=== PATIENT | female | born 1990 | race Caucasian/White ===

== ENCOUNTER 2016-10-28 10:23 | Outpatient (CLI) | payer MEDICAID | END 2016-10-28 10:24 | disposition home or self-care (01) | DX: Z36 Encounter for antenatal screening of mother (principal) ==

== ENCOUNTER 2016-11-15 11:57 | Outpatient (CLI) | payer MEDICAID | END 2016-11-15 11:58 | disposition home or self-care (01) | DX: Z36 Encounter for antenatal screening of mother (principal) ==

== ENCOUNTER 2016-12-07 09:56 | Outpatient (CLI) | payer MEDICAID | END 2016-12-07 09:57 | disposition home or self-care (01) | DX: Z36 Encounter for antenatal screening of mother (principal) ==

== ENCOUNTER 2016-12-07 11:12 | Outpatient (CLI) | payer MEDICAID | END 2016-12-07 11:13 | disposition home or self-care (01) | DX: Z34.02 Encounter for supervision of normal first pregnancy, second trimester (principal) ==

== ENCOUNTER 2017-02-06 08:00 | Outpatient (CLI) | payer MEDICAID | END 2017-02-06 08:01 | disposition home or self-care (01) | DX: Z03.75 Encounter for suspected cervical shortening ruled out (principal) ==

== ENCOUNTER 2017-02-20 11:17 | Outpatient (CLI) | payer MEDICAID | END 2017-02-20 11:18 | DX: O60.03 Preterm labor without delivery, third trimester (principal) ==

== ENCOUNTER 2017-02-25 08:54 | Outpatient (CLI) | payer MEDICAID ==
[2017-02-25] MEDS ORDERED: ACETAMINOPHEN 325 MG TABLET PO SCH (09:20)
[2017-02-25 09:27] LABS: BASOPHILS % (AUTO) 0.4 %; EOSINOPHILS # (AUTO) 0.1 10^3/uL (0.0-0.7); EOSINOPHILS % (AUTO) 0.7 %; HCT - HEMATOCRIT 36.7 % (37.0-47.0); HGB - HEMOGLOBIN 12.6 g/dL (12.0-16.0); LYMPHOCYTES # (AUTO) 2.2 10^3/uL (1.5-3.5); LYMPHOCYTES % (AUTO) 19.5 %; MEAN CORPUSCULAR HEMOGLOBIN 29.1 pg (27.0-31.0); MEAN CORPUSCULAR HGB CONC 34.4 g/dL (32.0-36.0); MEAN CORPUSCULAR VOLUME 84.7 fL (81.0-99.0); MEAN PLATELET VOLUME 7.6 fL (7.9-10.8); MONOCYTES # (AUTO) 0.7 10^3/uL (0.0-1.0); NEUTROPHILS # (AUTO) 8.2 10^3/uL (1.5-6.6); NEUTROPHILS % (AUTO) 73.4 %; RED BLOOD COUNT 4.33 10^6/uL (4.20-5.40); RED CELL DISTRIBUTION WIDTH 13.7 % (12.0-15.0); UNCORRECTED WHITE BLOOD COUNT 11.2 x10^3/uL; WHITE BLOOD COUNT 11.2 x10^3/uL (4.8-10.8)
[2017-02-25 09:40] LABS: CREATININE 0.7 mg/dL (0.4-1.0); URIC ACID 4.1 mg/dL (2.6-7.2)
[2017-02-25 10:06] VITALS: BP 122/85
[2017-02-25 11:04] LABS: BILIRUBIN,URINE NEGATIVE (NEGATIVE); PH,URINE 6.5 PH (5.0-7.5)
[2017-02-25 11:14] LABS: UA w/ MICROSCOPIC CHARGE YES
[2017-02-25 11:20] LABS: UR CULTURE IF IND NOT INDICATED
== END 2017-02-25 11:05 | disposition home or self-care (01) ==
LOC: WFO 08:54 → OB 08:56 → WFO 11:05
PROVIDERS: ATTEND Obstetrics & Gynecology
DX: O99.283 Endocrine, nutritional and metabolic diseases complicating pregnancy, third trimester (principal); Z3A.35 35 weeks gestation of pregnancy; E86.0 Dehydration
CPT/HCPCS: 36415; 81001; 82565; 82570; 83615; 84156; 84450; 84460; 84550; 85025; 87081; 99213; A9270; 81003; 87086

== ENCOUNTER 2017-03-12 10:26 | Outpatient (CLI) | payer MEDICAID ==
[2017-03-12 10:46] VITALS: BP 125/81
[2017-03-12 11:26] LABS: BILIRUBIN,URINE NEGATIVE (NEGATIVE); PH,URINE 7.5 PH (5.0-7.5)
[2017-03-12 11:28] LABS: UA w/ MICROSCOPIC CHARGE YES
[2017-03-12 11:34] LABS: UR CULTURE IF IND NOT INDICATED
== END 2017-03-12 12:40 | disposition home or self-care (01) ==
LOC: WFO 10:26 → OB 10:28 → WFO 12:40
PROVIDERS: ATTEND Obstetrics & Gynecology
DX: Z34.83 Encounter for supervision of other normal pregnancy, third trimester (principal)
CPT/HCPCS: 81001; 81003; 87086; 99214

== ENCOUNTER 2017-04-02 15:33 | Outpatient (CLI) | payer MEDICAID ==
[2017-04-02 15:46] VITALS: BP 109/80
== END 2017-04-02 18:13 | disposition home or self-care (01) ==
LOC: WFO 15:33 → OB 15:36 → WFO 18:13
PROVIDERS: ATTEND Obstetrics & Gynecology
DX: Z34.83 Encounter for supervision of other normal pregnancy, third trimester (principal)
CPT/HCPCS: 99214

== ENCOUNTER 2017-04-04 09:14 | Observation (INO) | payer MEDICAID ==
[2017-04-04] MEDS ORDERED: MORPHINE 10 MG/ML VIAL IVP SCH (13:00)
[2017-04-04] MEDS ORDERED: PROMETHAZINE 25 MG/1 ML VIAL IM SCH (13:00)
[2017-04-04 19:05] VITALS: BP 129/86
== END 2017-04-04 18:50 | disposition home or self-care (01) ==
LOC: WFO 09:14 → OB 09:15 → WFO 11:39 → OB 11:40
PROVIDERS: ADMIT Obstetrics & Gynecology; ATTEND Obstetrics & Gynecology
DX: O75.89 Other specified complications of labor and delivery (principal); Z3A.40 40 weeks gestation of pregnancy; O48.0 Post-term pregnancy
CPT/HCPCS: 96372; 96374; 99212

== ENCOUNTER 2017-04-05 20:36 | Inpatient (IN) | payer MEDICAID ==
--- NOTE | 2017-04-05 08:26 | PREOP HISTORY & PHYSICAL ---
DATE OF ADMISSION/SURGERY: 04/06/2017 DIAGNOSES 1. A 39-weeks 6-day gestation. 2. Plan postdates induction. 3. Maternal anxiety. HISTORY OF PRESENT ILLNESS: The patient is a 26-year-old , 2, para 0-0-1-0 woman, who was seen on Monday for prodrome of labor. She was quite uncomfortable and submitted to therapeutic rest with morphine, which knocked out the contractions and helped her rest. Her cervix was 2 cm, 50% effaced, -1 to -2 station. Despite over 8 hours of observation, it did not change. There is no suspected leaking membranes. After discussion, we made plans for postdates induction this week. The patient is very anxious and concerned about potential transportation problems getting to Labor and Delivery. The patient's EDC is 03/31/2017. [facility] Currently patient reports no signs or symptoms of preeclampsia. Reference typewritten H and P. BASIC LABS: Blood type O positive, antibody screen negative, RPR negative, hepatitis B surface antigen negative, rubella immune. Glucose challenge test normal 114. GBS status positive. ADDENDUM; patient presented in labor, eference Dr. Camarena's notes PAST MEDICAL HISTORY 1. Recurrent bladder infections. 2. High anxiety and depression. 3. No chronic disease history. PAST SURGICAL HISTORY: None. ALLERGIES: vitamins with iron. SOCIAL HISTORY: , high school graduate. No drug, tobacco, or alcohol use. FAMILY HISTORY: No known congenital anomalies or chromosomal defects; depression ; hypertension, and DVT. REVIEW OF SYSTEMS CONSTITUTIONAL: NEG. HEENT: NEG. CARDIAC: NEG. PULMONARY: NEG. GASTROINTESTINAL: NEG. GENITOURINARY: NEG. SKIN: NEG. NEUROLOGIC: NEG. MUSCULOSKELETAL: NEG. PHYSICAL EXAMINATION GENERAL: Anxious demeanor, often needs facts repeated multiple times to understand. VITAL SIGNS: Blood pressure , temperature . HEENT: Supple neck. No thyromegaly. EOMI, nonicteric sclera. LUNGS: Clear. CARDIAC: Regular. No murmur, no gallop. ABDOMEN: No hepatosplenomegaly. UTERUS: Normal resting tone, appropriate size, vertex presentation. EXTERNAL GENITALIA: No lesions. CERVIX: Baseline exam 2 cm, 50% effacement, -1 station. EXTERNAL HEART MONITOR: See current physician and nursing notes. EXTREMITIES: Nonedematous. NEUROLOGIC: Grossly intact. Patellar reflexes 2+ and equal. LABORATORY: Admission CBC pending. ASSESSMENT: The patient is a 26-year-old essential primigravida, who is currently approaching 41 weeks' gestation. She struggles with anxiety and current logistical situation, and the emotional demands of are difficult for her. She is a candidate for induction at 41 weeks and will benefit with cervical ripening. Cervical ripening was explained to her in detail. PT PRESENTED IN LABOR PLAN 1. Admit night for cervical ripening. 2. Pitocin induction Monday. 3. Begin penicillin GBS prophylaxis evening. ADMITTED JOB #: [id number] EXT JOB #:[id number] [email or web address]
[2017-04-05] MEDS ORDERED: fentaNYL 100 MCG/2 ML VIAL IVP PRN (20:40)
[2017-04-05] MEDS ORDERED: ONDANSETRON 4 MG/2 ML VIAL IVP PRN ×2 (20:40→22:22)
[2017-04-05] MEDS ORDERED: LACTATED RINGERS 1,000 ML IV SCH (20:40)
[2017-04-05] MEDS ORDERED: SODIUM CHLORIDE FLUSH 0.9% 10 ML SYRINGE IVP PRN (20:40)
[2017-04-05] MEDS ORDERED: PENICILLIN G POTASSIUM 5,000,000 UNIT in SODIUM CHLORIDE 0.9% MINIBAG 100 ML IV SCH (21:00)
[2017-04-05] MEDS ORDERED: OXYTOCIN/LACTATED RINGERS 250 ML IV SCH (21:00)
[2017-04-05] MEDS ORDERED: fent/BUPIV 2 MCG/0.125% 250 ML EP ONE (21:44)
[2017-04-05 21:46] LABS: BASOPHILS # (AUTO) 0.1 10^3/uL (0.0-0.1); BASOPHILS % (AUTO) 0.6 %; EOSINOPHILS # (AUTO) 0.1 10^3/uL (0.0-0.7); EOSINOPHILS % (AUTO) 0.6 %; HCT - HEMATOCRIT 37.2 % (37.0-47.0); HGB - HEMOGLOBIN 12.8 g/dL (12.0-16.0); LYMPHOCYTES # (AUTO) 2.8 10^3/uL (1.5-3.5); MEAN CORPUSCULAR HEMOGLOBIN 29.2 pg (27.0-31.0); MEAN CORPUSCULAR HGB CONC 34.5 g/dL (32.0-36.0); MEAN CORPUSCULAR VOLUME 84.6 fL (81.0-99.0); MEAN PLATELET VOLUME 7.7 fL (7.9-10.8); MONOCYTES # (AUTO) 1.2 10^3/uL (0.0-1.0); MONOCYTES % (AUTO) 8.2 %; NEUTROPHILS % (AUTO) 70.6 %; NUCLEATED RED BLOOD CELLS AUTO 0.1 /100WBC; RED CELL DISTRIBUTION WIDTH 14.1 % (12.0-15.0); UNCORRECTED WHITE BLOOD COUNT 14.2 x10^3/uL; WHITE BLOOD COUNT 14.2 x10^3/uL (4.8-10.8)
[2017-04-05] MEDS ORDERED: ROPIVACAINE 0.2% PF 10 ML VIAL EPI ONE (22:00)
[2017-04-05] MEDS ORDERED: NALOXONE 0.4 MG/ML VIAL IVP PRN (22:22)
[2017-04-05] MEDS ORDERED: METOCLOPRAMIDE 10 MG/2 ML VIAL IVP PRN (22:22)
[2017-04-05] MEDS ORDERED: diphenhydrAMINE INJ 50 MG/ML VIAL IVP PRN (22:22)
[2017-04-05] MEDS ORDERED: fent/BUPIV 2 MCG/0.125% 250 ML EP PRN (22:22)
[2017-04-05] MEDS ORDERED: NALBUPHINE 20 MG/ML AMP IVP PRN (22:22)
[2017-04-05] MEDS ORDERED: ePHEDrine 50 MG/ML AMP IVP PRN (22:22)
[2017-04-05] MEDS ORDERED: LACTATED RINGERS 500 ML IV ONE (22:22)
--- NOTE | 2017-04-05 23:34 | HISTORY & PHYSICAL EXAMINATION ---
Admit History - Instructions [place]: -Left hand click circles element as positive or present. -Right hand click slashes element as negative or not present. - Visit Reason Visit Reason: Contractions (Pt was seen last PM and was given Morphiene for sleep. Sent home adn returned this PM at about 2230 with return of contractions. She SROM at 1999.), Membranes rupture (2200), Bloody show (this afternoon.) - : 2 Parity: 0 Premature: 0 : 1 Care: positive: [facility] Complications This : positive: None ( care starting at 10 weeks. 15 visits. GBS positive) Smoking Status: Never smoker - Mother's Labs Mother's Blood Type: positive: O Mother's RH: positive: Positive GBS: positive: Group B Strep Positive Rubella Status: positive: Non-immune Meds/Allgy - Home Medications Home Medications: Ambulatory Orders Medication Instructions Recorded Confirmed Pnv95/Iron Fum/Folic Acid 1 each PO DAILY 04/07/16 04/07/16 [ [place]] - Allergies Allergies/Adverse Reactions: Allergies Allergy/AdvReac Type Severity Reaction Status Date / Time No Known Drug Allergies Allergy Verified 04/07/16 10:31 Physical - Abdominal Exam Contraction Frequency (min/apart): 2 Contraction Intensity: positive: Moderate to strong Uterine Resting Tone: positive: Soft - Monitoring Heart Rate Baseline: 145 Strip Review: positive: Category I - Presentation Presentation: positive: Vertex - Vaginal Exam Membranes: positive: Membranes ruptured Dilation (in cm): 5 Effacement (%): 90% Station: positive: -1 Cervical Position: positive: Midposition - Speculum Exam Findings: positive: Gross leak Plan for Labor - Plan For Labor Plan for Labor: Admit Epidural PCN 5 million with 2.5
[2017-04-06] MEDS: PENICILLIN G POTASSIUM 2,500,000 UNIT in SODIUM CHLORIDE 0.9% 100ML 100 ML IV SCH ×3 (01:42→09:32)
--- NOTE | 2017-04-06 07:03 | PROVIDER PROGRESS NOTE ---
Labor Progress Note - Instructions [place]ash: -Left hand click circles element as positive or present. -Right hand click slashes element as negative or not present. - Uterine Monitoring Uterine Monitoring Mode: positive: External toco Contraction Frequency (min/apart): 3-4 Contraction Intensity: positive: Strong Uterine Resting Tone: positive: Soft - Monitoring Monitor Mode: positive: External ultrasound Heart Rate Baseline: 160 Heart Rate Variability: positive: Moderate (6-25 bmp) Accelerations: positive: Present, 15x15 Strip Review: positive: Category I - Vaginal Exam Dilation (in cm): 9 Effacement (%): 100 Station: positive: 1 Cervical Position: positive: Anterior - Labor Progress Note Labor Progress Note/Additional Text: LOP Roll to the left
[2017-04-06] MEDS ORDERED: OXYTOCIN/LACTATED RINGERS 250 ML IV SCH (08:11)
--- NOTE | 2017-04-06 08:15 | PROVIDER PROGRESS NOTE ---
Labor Progress Note - Instructions [place]/Slash: -Left hand click circles element as positive or present. -Right hand click slashes element as negative or not present. - Uterine Monitoring Uterine Monitoring Mode: positive: External toco Contraction Frequency (min/apart): 7 Contraction Intensity: positive: Moderate to strong Uterine Resting Tone: positive: Soft - Monitoring Monitor Mode: positive: External ultrasound Heart Rate Baseline: 150 Heart Rate Variability: positive: Moderate (6-25 bmp) Accelerations: positive: Present, 15x15 Decelerations: positive: Variable Strip Review: positive: Category I - Labor Progress Note Labor Progress Note/Additional Text: contractions spacing will start pitocin
[2017-04-06] MEDS ORDERED: MINERAL OIL LIGHT 10 ML MC ONE (10:22)
[2017-04-06] MEDS ORDERED: LIDOCAINE 1% 50 ML MDV SUBQ ONE (10:22)
--- NOTE | 2017-04-06 11:31 | PROVIDER PROGRESS NOTE ---
Labor Progress Note - Instructions [place]ash: -Left hand click circles element as positive or present. -Right hand click slashes element as negative or not present. - Uterine Monitoring Contraction Frequency (min/apart): 3-4 Contraction Intensity: positive: Strong Uterine Resting Tone: positive: Soft - Monitoring Monitor Mode: positive: External ultrasound Heart Rate Baseline: 170 Heart Rate Variability: positive: Moderate (6-25 bmp) Accelerations: positive: Absent Decelerations: positive: Early, Recurrent (>50% x20 min) Strip Review: positive: Category II - Vaginal Exam Dilation (in cm): c Effacement (%): 100 Station: positive: 3 Cervical Position: positive: Anterior - Labor Progress Note Labor Progress Note/Additional Text: Pt is pushing well. head is within vacuum range if necessary.
[2017-04-06] MEDS ORDERED: OXYTOCIN/LACTATED RINGERS 250 ML IV ONE (13:01)
[2017-04-06] MEDS ORDERED: HYDROCORTISONE/PRAMOXINE 10 GM PR PRN (13:01)
[2017-04-06] MEDS ORDERED: diphenhydrAMINE 25 MG CAPSULE PO PRN (13:01)
[2017-04-06] MEDS ORDERED: ONDANSETRON ODT 4 MG TABLET TL PRN (13:01)
[2017-04-06] MEDS ORDERED: ACETAMINOPHEN 325 MG TABLET PO PRN (13:01)
[2017-04-06] MEDS ORDERED: oxyCODONE 5 MG TABLET PO PRN (13:01)
--- NOTE | 2017-04-06 13:11 | DELIVERY NOTE ---
Delivery Note - Instructions [place]ash: -Left hand click circles element as positive or present. -Right hand click slashes element as negative or not present. - Labor Labor: positive: Spontaneous - Delivery Method Infant Delivery Method: positive: Vacuum assist - Presentation Presentation: positive: Vertex, JACLYN - left occiput anterior - Nuchal Cord Nuchal Cord: positive: None - Anesthetic Anesthetic Type: Anesthetic: positive: Lidocaine - 0.5% plain Volume: positive: 1cc, Other (10 ml) - Amniotic Fluid Description Amniotic Fluid Description: positive: Clear - Vacuum Use Indication for Vacuum Use: positive: Shortening of 2nd stage for maternal benefit Type of Vacuum Cup: positive: Cup: Mushroom Type Vacuum Extraction: positive: Successful (Pulled wit 2 contractions. no popoffs. pulled with 500 mm Hg.) - Episiotomy Type Episiotomy Type: positive: Midline - Laceration Laceration: positive: 3rd degree (Partial third degree laturation. transected 1/ 4 of the spinctor fibers.) - Suture Suture Type: positive: Vicryl Suture Size: positive: 3-0 (2 figure of 8 in the spinctor capsul.) - Delivery Outcome Delivery Outcome: positive: Livebirth - : positive: Placed in direct skin contact with mother, Bulb syringe, Stimulated [place] sex: positive: Male (Apgars 9/9. weight 8lb 4oz) - Cord Cord: positive: 3 vessels - Placenta Placenta: positive: Intact, Spontaneous - Estimated Blood Loss Estimated Blood Loss (in cc): 250 - Delivery Comments (Free Text/Narrative) Delivery Comments (Free Text/Narrative): there was a 30 second shoulder dystocia with the left arm anterior. responded to [place] perry.
[2017-04-06] MEDS: IBUPROFEN 600 MG TABLET PO SCH ×2 (13:38→20:13)
[2017-04-06] MEDS: HYDROCORTISONE 1% CREAM 28 GM TUBE PR PRN (13:39)
[2017-04-06] MEDS ORDERED: SIMETHICONE CHEW 80 MG TABLET PO SCH (14:00)
[2017-04-06] MEDS ORDERED: LACTATED RINGERS 1,000 ML IV SCH (14:00)
[2017-04-06] MEDS: oxyCOD/ACETAMIN 5 MG/325 MG TABLET PO PRN ×2 (18:19→22:36)
[2017-04-06] MEDS: DOCUSATE SODIUM 100 MG CAPSULE PO SCH (22:36)
[2017-04-06] MEDS: WITCH HAZEL/GLYCERIN 1 EACH MED..PAD TOP PRN (23:30)
[2017-04-07] MEDS: IBUPROFEN 600 MG TABLET PO SCH ×4 (03:44→23:44)
[2017-04-07 05:09] LABS: BASOPHILS % (AUTO) 0.2 %; EOSINOPHILS # (AUTO) 0.3 10^3/uL (0.0-0.7); EOSINOPHILS % (AUTO) 1.5 %; HCT - HEMATOCRIT 29.1 % (37.0-47.0); HGB - HEMOGLOBIN 9.7 g/dL (12.0-16.0); LYMPHOCYTES # (AUTO) 3.4 10^3/uL (1.5-3.5); LYMPHOCYTES % (AUTO) 19.1 %; MEAN CORPUSCULAR HEMOGLOBIN 28.7 pg (27.0-31.0); MEAN CORPUSCULAR HGB CONC 33.4 g/dL (32.0-36.0); MEAN CORPUSCULAR VOLUME 86.2 fL (81.0-99.0); MEAN PLATELET VOLUME 7.2 fL (7.9-10.8); MONOCYTES # (AUTO) 1.2 10^3/uL (0.0-1.0); MONOCYTES % (AUTO) 6.4 %; NEUTROPHILS % (AUTO) 72.8 %; RED BLOOD COUNT 3.38 10^6/uL (4.20-5.40); UNCORRECTED WHITE BLOOD COUNT 17.9 x10^3/uL; WHITE BLOOD COUNT 17.9 x10^3/uL (4.8-10.8)
--- NOTE | 2017-04-07 07:46 | PROVIDER PROGRESS NOTE ---
Subjective - Prog Note Date Prog Note Date: 04/07/17 Prog Note Time: 07:44 - Subjective Pt reports feeling: Improved (Pt notes episiotomy pain. 12/23. breast feeding milk not in) Objective - Vital Signs/Intake & Output Reviewed Vital Signs: Yes Vital Signs: Vital Signs x48h Temp Pulse Resp BP 04/07/17 03:48 36.8 C 87 16 110/78 Intake & Output: Intake & Output 04/04/17 04/05/17 04/06/17 04/07/17 23:59 23:59 23:59 23:59 Intake Total 535 500 Output Total 2800 Balance -2265 500 - Objective General Appearance: positive: No acute distress, Alert Respiratory: positive: Chest non-tender, No respiratory distress, Breath sounds nml Cardiovascular: positive: Regular rate & rhythm, No murmur Abdomen: positive: Non-tender, Mass (U-1 mild tenderness as expected) Extremities: negative: Calf tenderness, Magda's sign/cords - Lab Results Fish Bones: 04/07/17 04:50 Other Labs: Lab Results x24hrs 04/07/17 Range/Units 04:50 WBC 17.9 H (4.8-10.8) x10^3/uL RBC 3.38 L (4.20-5.40) 10^6/uL Hgb 9.7 L (12.0-16.0) g/dL Hct 29.1 L (37.0-47.0) % MCV 86.2 (81.0-99.0) fL MCH 28.7 (27.0-31.0) pg MCHC 33.4 (32.0-36.0) g/dL RDW 14.0 (12.0-15.0) % Plt Count 157 (130-450) 10^3/uL MPV 7.2 L (7.9-10.8) fL Neut # 13.0 H (1.5-6.6) 10^3/uL Lymph # 3.4 (1.5-3.5) 10^3/uL Snyder # 1.2 H (0.0-1.0) 10^3/uL Eos # 0.3 (0.0-0.7) 10^3/uL Baso # 0.0 (0.0-0.1) 10^3/uL Absolute Nucleated RBC 0.01 x10^3/uL Nucleated RBCs 0.0 /100WBC Assessment/Plan - Problem List (1) Status post vacuum-assisted vaginal delivery Impression: S/P vacuum assisted delivery with partial third degree laceration doing well. Discussed breast feeding, contraception, bleeding, . Pt would like Mirena at 6 week PP check Discharge meds: Motrin 800 Percocet 5/325 Colace 100 Iron
[2017-04-07] MEDS: oxyCOD/ACETAMIN 5 MG/325 MG TABLET PO PRN ×2 (08:18→17:29)
[2017-04-07] MEDS: DOCUSATE SODIUM 100 MG CAPSULE PO SCH ×2 (09:29→23:45)
[2017-04-07] MEDS: HYDROCORTISONE 1% CREAM 28 GM TUBE PR PRN (16:45)
[2017-04-07] MEDS: WITCH HAZEL/GLYCERIN 1 EACH MED..PAD TOP PRN (16:48)
[2017-04-07] MEDS: ACETAMINOPHEN 500 MG TABLET PO PRN (23:44)
[2017-04-08] MEDS: oxyCOD/ACETAMIN 5 MG/325 MG TABLET PO PRN (04:52)
[2017-04-08] MEDS: IBUPROFEN 600 MG TABLET PO SCH ×2 (06:48→13:27)
[2017-04-08] MEDS: ACETAMINOPHEN 500 MG TABLET PO PRN (08:54)
[2017-04-08] MEDS: DOCUSATE SODIUM 100 MG CAPSULE PO SCH (08:55)
[2017-04-08] MEDS ORDERED: MEASLES,MUMPS & RUBELLA VACC 0.5 ML VIAL SUBQ ONE (09:43)
--- NOTE | 2017-04-08 09:45 | Discharge Plan ---
Discharge Plan Disposition: 01 Home, Self Care Condition: Good Diet: Regular Activity Restrictions: Activity as Tolerated Shower Restrictions: No Driving Restrictions: No No Smoking: If you smoke, Please STOP! Call for help. Follow-up with: Ozzy Camarena MD [Provider Admit Priv/Credential] -
[2017-04-08 13:26] VITALS: BP 116/72
--- NOTE | 2017-04-10 08:11 | DISCHARGE SUMMARY ---
DATE OF ADMISSION: 04/05/2017 DATE OF DISCHARGE: 04/08/2017 DIAGNOSES 1. Term labor. 2. Compound presentation. 3. Mild anemia. 4. Positive group B streptococcus. 5. Maternal anxiety. 6. Mild shoulder dystocia. 7. Mild Anemia PROCEDURES: Low vacuum-assisted vaginal delivery of a living male , Rebecca maneuver; Laceration repair. (Dr Camarena) COMPLICATIONS: Mild shoulder dystocia. HISTORY: The patient is a 26-year-old 2, para 0-0-1-0, who presented reporting spontaneous rupture of membranes with clear fluid at 2200 hours. On she was seen in Labor and Delivery in the prodrome of labor and received morphine for therapeutic rest. She was originally planned to be an induction for post-datism on Monday. BASIC LABORATORY STUDIES: Blood type O positive, antibody screen negative, RPR negative, hepatitis surface antigen negative, rubella immune. Glucose challenge test 114. GBS status positive. HOSPITAL COURSE: The patient was admitted and begun on GBS prophylaxis. She smoothly moved to completion. During the second phase of labor she became quite fatigued and low vacuum was successfully used. There was a 30-second dystocia due to left anterior arm that Rebecca maneuver was successfully used. A living 8 pound 4 ounce infant was born, scoring Apgars of 9 and 9. Patient's baseline hemoglobin was 12.8, and post delivery 9.7. Postoperatively, the patient did well. She received instruction on breast feeding, and by post delivery day #2 did well. Due to some bruising, bilirubin was borderline and await evaluation by cash checker for date of final discharge. By post delivery day #2, the patient was capable self-care and baby care. She was given warning and call back instructions (fever, foul discharge, and excessive bleeding). DISCHARGE MEDICATIONS 1. Motrin 600 q.6-8h. p.r.n. (OTC). 2. vitamins and iron. 3. Ferrous sulfate 325 daily. 4. Colace 200 mg daily. JOB #: [id number] EXT JOB #:[id number] [facility]
== END 2017-04-08 12:45 | disposition home or self-care (01) | DRG 775 ==
LOC: WFO 20:36 → OB 20:36 → WFO 20:57 → OB 20:58
PROVIDERS: ADMIT Obstetrics & Gynecology; ATTEND Obstetrics & Gynecology
PROC: 10D07Z6 Extraction of Products of Conception, Vacuum, Via Natural or Artificial Opening (ICD-10-PCS; principal; 2017-04-06)
PROC: 0DQR0ZZ Repair Anal Sphincter, Open Approach (ICD-10-PCS; 2017-04-06)
PROC: 3E0134Z Introduction of Serum, Toxoid and Vaccine into Subcutaneous Tissue, Percutaneous Approach (ICD-10-PCS; 2017-04-08)
DX: O99.824 Streptococcus B carrier state complicating childbirth (principal); O32.6XX0 Maternal care for compound presentation, not applicable or unspecified; O66.0 Obstructed labor due to shoulder dystocia; O70.20 Third degree perineal laceration during delivery, unspecified; O99.02 Anemia complicating childbirth; D64.9 Anemia, unspecified; O99.344 Other mental disorders complicating childbirth; F41.9 Anxiety disorder, unspecified; Z3A.40 40 weeks gestation of pregnancy; Z37.0 Single live birth; Z23 Encounter for immunization
CPT/HCPCS: 36415; 51701; 85025; 99213

== ENCOUNTER 2017-05-17 15:50 | Outpatient (CLI) | payer MEDICAID | END 2017-05-17 15:51 | LOC: LAB.R 15:50 | PROVIDERS: ATTEND Obstetrics & Gynecology | DX: Z11.3 Encounter for screening for infections with a predominantly sexual mode of transmission (principal) | CPT/HCPCS: 87491; 87591 ==